=== PATIENT | male | born 1970 | race Caucasian/White ===

== ENCOUNTER → 2016-07-09 | Outpatient (CLI) | payer OTHER ==
[~2016-07-09] MED LIST: GLUCOPHAGE1000 MG PO; LEXAPRO20 M1 PO; LIORESAL 1010 MG/TAB PO; MICROZIDE12.5 M1 PO; NORCO 325 MG-51 TA1 PO; TRULICITY0.75 MG/0.; ZESTRIL40 M1 PO
== END ==
LOC: LAB 11:29
DX: E11.9 Type 2 diabetes mellitus without complications (principal); F31.10 Bipolar disorder, current episode manic without psychotic features, unspecified; I10 Essential (primary) hypertension; M54.5 Low back pain; E66.9 Obesity, unspecified

== ENCOUNTER → 2016-10-24 | Outpatient (CLI) | payer SELFPAY ==
[2015-09-11 17:34] VITALS: BP 194/103
== END ==
LOC: LAB 08:38
DX: E11.9 Type 2 diabetes mellitus without complications (principal)

== ENCOUNTER → 2017-03-18 | Outpatient (CLI) | payer SELFPAY ==
[2015-09-11 17:34] VITALS: BP 194/103
[2017-03-18 17:42] LABS: HEMATOCRIT 38.8 % (42.0-52.0); MEAN CELL VOLUME 83 fl (78-100); MEAN CORPUSCULAR HEMOGLOBIN 28 pg (27-31); MEAN CORPUSCULAR HGB CONC 34 g/dL (33-37); MEAN PLATELET VOLUME 10.6 fl (7.4-10.4); PLATELET COUNT 265 K/mm3 (130-400); RED CELL DISTRIBUTION WIDTH 13.8 % (11.5-14.5); WHITE BLOOD COUNT 7.3 K/mm3 (4.8-10.8)
[2017-03-18 18:11] LABS: PROTHROMBIN TIME 27.3 SECONDS (9.0-12.0)
[2017-03-18 18:47] LABS: LYMPHOCYTE 37 % (20-51); MONOCYTE 3 % (3-10); NEUTROPHILS 55 % (42-75)
[2017-03-18 19:26] LABS: ERYTHROCYTE SEDIMENTATION RATE 9 mm/hr (0-15)
== END ==
LOC: LAB 17:00
PROVIDERS: Family Medicine
DX: M25.511 Pain in right shoulder (principal); E11.9 Type 2 diabetes mellitus without complications; I10 Essential (primary) hypertension

== ENCOUNTER → 2017-04-15 | Outpatient (CLI) | payer SELFPAY ==
[2015-09-11 17:34] VITALS: BP 194/103
[2017-04-15 11:25] LABS: PROTHROMBIN TIME 17.4 SECONDS (9.0-12.0)
[2017-04-15 11:27] LABS: BUN/CREATININE RATIO 18.1 (6.0-26.0); CALCIUM 8.8 mg/dL (8.4-10.2); POTASSIUM 4.4 mmol/L (3.6-5.0)
== END ==
LOC: LAB 10:59
PROVIDERS: Nurse Practitioner Family
DX: I48.91 Unspecified atrial fibrillation (principal); Z51.81 Encounter for therapeutic drug level monitoring; F41.9 Anxiety disorder, unspecified; E11.9 Type 2 diabetes mellitus without complications